=== PATIENT | female | born 1955 | race African-American/Black ===

== ENCOUNTER 2017-04-26 05:59 | Day surgery (SDC) | payer SELFPAY ==
[2017-04-23 13:25] VITALS: BMI 29.0
[~2017-04-26 05:59] MED LIST: HEPARIN NA (PORCINE) 5,000 UNITS/ML 1ML VIAL SQ ONE
[2017-04-26] MEDS ORDERED: LIDOCAINE HCL 1%, 10 MG/ML (20ML VIAL) ONE ×2 (07:20→08:11)
[2017-04-26] MEDS ORDERED: LIDOCAINE 1%/EPI 1:100000 (20 ML MULTI DOSE VIAL) ONE (07:21)
[2017-04-26] MEDS ORDERED: EPINEPHrine 1:1,000 1 MG/1 ML - 30ML VIAL (INJECTION) ONE (07:21)
[2017-04-26] MEDS ORDERED: HEPARIN NA (PORCINE) 5,000 UNITS/ML 1ML VIAL ONE (07:38)
[2017-04-26] MEDS ORDERED: ONDANSETRON 4 MG/2 ML VIAL IVPB PRN (07:54)
[2017-04-26] MEDS ORDERED: ACETAMINOPHEN 325 MG TABLET (FP) PO PRN (07:54)
[2017-04-26] MEDS ORDERED: ZOLPIDEM TARTRATE 5 MG TABLET PO PRN (07:54)
[2017-04-26] MEDS ORDERED: oxyCODONE HCL 5 MG TABLET PO PRN ×2 (07:57→15:59)
[2017-04-26] MEDS ORDERED: HYDROmorphone HCL CARPU-JECT 2 MG/1 ML DISP.SYRIN IVPB PRN (07:59)
[2017-04-26] MEDS ORDERED: LACTATED RINGERS SOLUTION 1,000 ML IV SCH ×2 (08:00→16:00)
[2017-04-26] MEDS ORDERED: ceFAZolin SODIUM 1 GM VIAL ONE ×5 (08:21→17:26)
[2017-04-26] MEDS ORDERED: GENTAMICIN SO4 80 MG/2 ML VIAL ONE ×3 (08:21→17:26)
[2017-04-26] MEDS ORDERED: MIDAZOLAM HCL 2 MG/2 ML SINGLE DOSE VIAL ONE (08:22)
[2017-04-26] MEDS ORDERED: ACETAMINOPHEN INJECTION 200 ML IVPB ONE (08:22)
[2017-04-26] MEDS ORDERED: SCOPOLAMINE HYDROBROMIDE 1 PATCH PATCH.TD72 ONE (08:22)
[2017-04-26] MEDS ORDERED: BACITRACIN 15 GM TUBE TOPICAL OINTMENT ONE (08:23)
[2017-04-26] MEDS ORDERED: BUPIVACAINE HCL/PF 2.5 MG/ML - 30 ML VIAL IJ ONE (08:23)
[2017-04-26] MEDS ORDERED: CEFAZOLIN 1 GM/D5W 50 ML IVPB SCH (09:00)
[2017-04-26] MEDS ORDERED: ROCURONIUM BROMIDE 50 MG/5 ML VIAL ONE ×3 (09:09→14:58)
[2017-04-26] MEDS ORDERED: LIDOCAINE HCL/PF 2% SDV 5ML VIAL ONE (09:11)
[2017-04-26] MEDS ORDERED: DESFLURANE GAS 240 ML BOTTLE IH ONE (10:04)
[2017-04-26] MEDS ORDERED: ePHEDrine SULFATE 50 MG/1 ML AMPULE ONE (10:56)
[2017-04-26] MEDS ORDERED: DEXAMETHASONE SOD PHOSPHATE 4 MG/1 ML VIAL ONE (13:40)
[2017-04-26] MEDS ORDERED: ONDANSETRON 4 MG/2 ML VIAL IVPUSH PRN (15:59)
[2017-04-26] MEDS ORDERED: HYDROmorphone HCL CARPU-JECT 1 MG/1 ML DISP.SYRIN IVPB PRN (16:05)
[2017-04-26] MEDS ORDERED: PROPOFOL 20 ML ONE (21:20)
[2017-04-26] MEDS: ENOXAPARIN NA (PORCINE) 40 MG/0.4 ML DISP.SYRIN SQ ONE (23:30)
[2017-04-27] MEDS: DOCUSATE SODIUM 100 MG CAPSULE (FP) PO SCH ×3 (06:26→22:26)
--- NOTE | 2017-04-27 08:56 | PN ---
Progress Note (short form) - Note Progress Note: 61F POD1 s/p bilateral breast augmentation, mastopexy, liposuction, revision abdominoplasty under [facility]T. Pt is doing well, states that pain is well controlled, reports mild sore throat, but is not hoarse and has no dyspnea. No anesthetic complications reported at this time, to go home today.
[2017-04-27] MEDS: DOXYCYCLINE HYCLATE 100 MG CAPSULE PO SCH ×2 (09:16→18:02)
[2017-04-27] MEDS: oxyCODONE HCL 5 MG TABLET PO PRN ×3 (09:17→20:35)
[2017-04-27] MEDS: CEFAZOLIN 1 GM/D5W 50 ML IVPB SCH (20:46)
[2017-04-27] MEDS: SULFAMETHOXAZOLE/TRIMETHOPRIM 800MG/160MG D.S. TABLET PO SCH (22:25)
[2017-04-27] MEDS ORDERED: ENOXAPARIN NA (PORCINE) 40 MG/0.4 ML DISP.SYRIN SQ ONE (23:00)
[2017-04-28] MEDS: CEFAZOLIN 1 GM/D5W 50 ML IVPB SCH (01:19)
[2017-04-28] MEDS: oxyCODONE HCL 5 MG TABLET PO PRN ×2 (06:07→11:05)
[2017-04-28] MEDS: DOCUSATE SODIUM 100 MG CAPSULE (FP) PO SCH (06:07)
[2017-04-28 06:28] VITALS: BP 118/74; PULSE 94; TEMP 99.3
[2017-04-28] MEDS: SULFAMETHOXAZOLE/TRIMETHOPRIM 800MG/160MG D.S. TABLET PO SCH (10:04)
--- NOTE | 2017-04-29 10:54 | PATH ---
Surgical Pathology Report Patient Name: LUPE SALAS [facility]. Rec. #: [id number] /Age/Gender: 1955 (Age: 61) / F Account: [id number] Location: [facility] Taken: 04/27/2017 Received: 04/27/2017 Reported: 04/29/2017 Physicians: Mireya Carney M.D. Specimen(s) Received A: LEFT BREAST IMPLANT B: RIGHT BREAST IMPLANT C: LEFT BREAST SKIN AND TISSUE D: LEFT BREAST CAPSULE E: RIGHT BREAST SKIN AND TISSUE F: INFERIOR ABDOMINAL PUBIC SKIN Clinical History Cosmetic Final Diagnosis A. CONFIGURATION SPECIALIST, LEFT BREAST, REMOVAL: BREAST IMPLANT (GROSS ONLY). B. CONFIGURATION SPECIALIST, RIGHT BREAST, REMOVAL: BREAST IMPLANT (GROSS ONLY). C. LEFT BREAST, MAMMOPLASTY: BENIGN BREAST TISSUE WITH FIBROCYSTIC CHANGES INCLUDING FOCAL USUAL DUCTAL HYPER AGE (UDH), STROMAL FIBROSIS, AND DUCTAL DILATATION. UNREMARKABLE SKIN PRESENT. D. SOFT TISSUE, LEFT BREAST, EXCISION: FIBROMEMBRANOUS TISSUE CONSISTENT WITH BREAST IMPLANT CAPSULE. ATTACHED BENIGN BREAST TISSUE PRESENT. E. SKIN AND SOFT TISSUE, RIGHT BREAST, EXCISION: SKIN WITH SEBORRHEIC KERATOSIS, AND BENIGN SUBCUTANEOUS ADIPOSE TISSUE. F. SKIN AND SUBCUTANEOUS TISSUE, INFERIOR ABDOMINAL PUBIC, EXCISION: SKIN AND SUBCUTANEOUS ADIPOSE TISSUE (GROSS ONLY). Electronically Signed Kyler Proctor M.D. Gross Description A. Received fresh labeled "left breast implant," is an 11 cm in diameter x 3 cm in depth clear, rubbery, intact breast implant. No soft tissue is present. No sections are submitted, gross only. B. Received fresh labeled "right breast implant," is an 11 cm in diameter x 3 cm in depth clear, rubbery, intact breast implant. No soft tissue is present. No sections are submitted, gross only. C. Received in formalin labeled "left breast skin and tissue 242 g," is a 16.5 x 15.0 x 3.0 cm aggregate of multiple irregular, unoriented portions of fibroadipose tissue and bernabe-brown, unremarkable skin. Sectioning reveals multiple foci of dense, white, firm fibrous tissue. No definitive masses are identified. Supervisor Drying sections are submitted in 6 cassettes. D. Received in formalin labeled "left breast capsule," is a 12.5 x 7.3 x 0.6 cm portion of pink-bernabe fibrous tissue, consistent with a fibrous capsule. No masses are identified. Supervisor Drying sections are submitted in one cassette. E. Received in formalin labeled "right breast skin and tissue," is a 22 g, 7.5 x 5.5 x 0.6 cm aggregate of multiple bernabe-brown, irregular, unoriented portions of skin with minimal underlying soft tissue. The epidermal surface displays a focal 1.0 x 0.9 cm brown pigmented lesion. The remaining epidermal surfaces are unremarkable. Supervisor Drying sections are submitted in 2 cassettes as follows: 1-epidermal lesion; 2-additional healthcare representative tissue F. Received in formalin labeled "inferior abdominal pubic and," is a 23.0 x 3.0 cm brown, elliptical, unoriented portion of skin excised to depth of 2.0 cm. The epidermal surface is unremarkable. Sectioning reveals predominantly yellow, lobulated adipose tissue with foci of bernabe fibrous tissue. No sections are submitted, gross only. 04/27/2017 [facility]04/27/2017
== END 2017-04-28 18:42 | disposition home or self-care (01) ==
LOC: FASU 05:59 → FM/S 04-27 06:37 → FASU 04-28 18:42
PROVIDERS: ATTEND Surgery
CPT/HCPCS: 88300-TC; 88304-TC; 88305-TC; 94760; J1644